=== PATIENT | male | born 1970 | race African-American/Black ===

== ENCOUNTER 2023-03-11 10:09 | Emergency (ER) | payer OTHER ==
[2023-03-11] MEDS ORDERED: Ketorolac Tromethamine 30 MG/ML VIAL ONE (11:42)
== END 2023-03-11 14:37 | disposition home or self-care (01) ==
LOC: CSHERS 10:09
DX: M54.50 Low back pain, unspecified (principal); R15.9 Full incontinence of feces
CPT/HCPCS: 72148; 96374; J1885

== ENCOUNTER 2025-06-13 10:19 | Outpatient (CLI) | payer MEDICAID | END 2025-06-13 10:20 | disposition home or self-care (01) | LOC: CSHRAD 10:19 | PROVIDERS: ATTEND Registered Nurse | DX: M46.1 Sacroiliitis, not elsewhere classified (principal); M16.11 Unilateral primary osteoarthritis, right hip ==